=== PATIENT | male | born 1955 | race Two or more races ===

== ENCOUNTER 2017-04-03 10:39 | Emergency (ER) | payer MEDICARE, OTHER ==
[~2017-04-03] VITALS: Ht 190.5 cm; Wt 95.7 kg
[2017-04-03 12:58] LABS: Basophils # (auto) 0.1 uL; Eosinophils # (auto) 0.1 uL; Lymphocytes # (auto) 1.4 uL; Monocytes % (auto) 9.2 % (0.0-12.0)
[2017-04-03 13:00] LABS: Basophils % (auto) 0.8 % (0.0-2.0); Eosinophils % (auto) 0.4 % (0.0-7.0); Hematocrit 38.5 % (41.0-53.0); Hemoglobin 13.3 g/dL (13.5-17.5); Lymphocytes % (auto) 11.6 % (10.0-50.0); Mean Corpuscular Hemoglobin 37.3 pg (28.0-32.0); Mean Corpuscular Hgb Conc. 34.4 g/dL (32.0-36.0); Mean Corpuscular Volume 108.4 fL (80.0-100.0); Monocytes # (auto) 1.1 uL; Neutrophils # (auto) 9.7 uL; Nucleated Red Blood Cells % 0.1 %; Platelet Count (auto) 230 10^3/uL (140-450); Red Blood Cells 3.55 10^6/uL (4.5-5.90); Red Cell Distribution Width 14.9 % (11.8-14.3); White Blood Cell 12.4 10^3/uL (4.4-10.8)
[2017-04-03 13:32] LABS: Albumin 1.9 g/dL (3.4-5.0); BUN/Creatinine Ratio 25.3; Bilirubin, Total 6.7 mg/dL (0.2-1.0); Calcium 7.9 mg/dL (8.5-10.1); Potassium 4.7 mmol/L (3.5-5.1); Total Protein 8.7 g/dL (6.4-8.2)
[2017-04-03 13:36] LABS: INR 1.08 (0.9-1.15); Prothrombin Time 11.8 sec (9.37-12.3)
[2017-04-03 16:45] VITALS: BP 127/77
[2017-04-03] MEDS ORDERED: MORPHINE SULFATE 4 MG/ML SYR/VIAL IV PRN (16:45)
[2017-04-03] MEDS ORDERED: LORazepam 0.5 MG TAB PO PRN (16:45)
[2017-04-03] MEDS ORDERED: DEXTROSE (50%) 50ML SYRG IV PRN (16:45)
[2017-04-03] MEDS ORDERED: TEMAZEPAM 15 MG CAP PO PRN (16:45)
[2017-04-03] MEDS ORDERED: NITROGLYCERIN 0.4 MG SL TAB SL PRN (16:45)
[2017-04-03] MEDS ORDERED: MORPHINE SULF INJ 2 MG/ML SYRINGE 1ML IV PRN ×2 (16:45)
[2017-04-03] MEDS ORDERED: cefTRIAXone 1GM/10ml IVPUSH 10 ML IV ONE (16:45)
[2017-04-03] MEDS ORDERED: PANTOPRAZOLE 40 MG TAB PO ONE (17:00)
[2017-04-03 17:01] LABS: Amylase 180 U/L (25-115); Lipase 464 U/L (73-393)
[2017-04-03] MEDS ORDERED: ACCU-CHEK COMFORT CURVE STRIP VI SCH (18:00)
[2017-04-03] MEDS ORDERED: metroNIDAZOLE 500MG/100ML 100 ML IV SCH (18:00)
[2017-04-03] MEDS ORDERED: InsuLIN REG 1unit/0.01ml Soln (100units/ml) SC SCH (18:00)
[2017-04-04] MEDS ORDERED: cefTRIAXone 1GM/10ml IVPUSH 10 ML IV SCH (09:00)
[2017-04-04] MEDS ORDERED: PANTOPRAZOLE 40 MG TAB PO SCH (10:00)
== END 2017-04-03 17:38 | disposition left against medical advice (07) ==
LOC: ER 10:39
DX: K70.9 Alcoholic liver disease, unspecified (principal); K70.31 Alcoholic cirrhosis of liver with ascites; E11.9 Type 2 diabetes mellitus without complications; I10 Essential (primary) hypertension; E43 Unspecified severe protein-calorie malnutrition; Z68.26 Body mass index [BMI] 26.0-26.9, adult
CPT/HCPCS: 10030; 36415; 49082; 74176; 76705; 76942; 80053; 82150; 83036; 83690; 85025; 85610

== ENCOUNTER 2017-04-06 09:48 | Inpatient (IN) | payer MEDICARE, OTHER ==
[~2017-04-06] VITALS: Ht 152.4 cm; Wt 81.4 kg
[2017-04-06 10:47] LABS: Eosinophils # (auto) 0 uL; Eosinophils % (auto) 0.4 % (0.0-7.0); Lymphocytes # (auto) 1.1 uL; Lymphocytes % (auto) 9.8 % (10.0-50.0)
[2017-04-06 10:49] LABS: Basophils # (auto) 0 uL; Basophils % (auto) 0.4 % (0.0-2.0); Hematocrit 39.6 % (41.0-53.0); Hemoglobin 13.5 g/dL (13.5-17.5); Mean Corpuscular Hemoglobin 36.9 pg (28.0-32.0); Mean Corpuscular Volume 108.5 fL (80.0-100.0); Monocytes # (auto) 1.3 uL; Monocytes % (auto) 12.3 % (0.0-12.0); Neutrophils # (auto) 8.4 uL; Neutrophils % (auto) 77.1 % (37.0-80.0); Platelet Count (auto) 234 10^3/uL (140-450); Red Blood Cells 3.65 10^6/uL (4.5-5.90); Red Cell Distribution Width 14.7 % (11.8-14.3); White Blood Cell 10.9 10^3/uL (4.4-10.8)
[2017-04-06 11:02] LABS: INR 1.08 (0.9-1.15); Partial Thromboplastin Time 27.2 sec (22.64-33.71); Prothrombin Time 11.8 sec (9.37-12.3)
[2017-04-06 11:06] LABS: Albumin 1.6 g/dL (3.4-5.0); BUN/Creatinine Ratio 24.7; Bilirubin, Total 5.5 mg/dL (0.2-1.0); Calcium 7.3 mg/dL (8.5-10.1); Potassium 4.5 mmol/L (3.5-5.1); Total Protein 7.9 g/dL (6.4-8.2)
[2017-04-06] MEDS ORDERED: SODIUM CHLORIDE 0.9% 1,000 ML IV ONE (12:43)
[2017-04-06] MEDS ORDERED: SPIRONOLACTONE 25 MG TAB PO ONE (12:45)
[2017-04-06] MEDS ORDERED: LACTULOSE 20Gm/30ML SOLN PO ONE (12:45)
[2017-04-06] MEDS ORDERED: FUROSEMIDE 40 MG/4 ML VIAL IV ONE (12:45)
[2017-04-06] MEDS ORDERED: LIDOCAINE 2% JELLY 11ml (GLYDO) ONE (13:02)
[2017-04-06] MEDS ORDERED: LIDOCAINE 2% JELLY 11ml (GLYDO) UR ONE (13:45)
[2017-04-06 13:56] LABS: Urine Bacteria None Seen /hpf (None Seen); Urine WBC None Seen /hpf (0 - 3)
[2017-04-06 14:29] LABS: Urine Blood 2+ /uL (Negative)
[2017-04-06] MEDS ORDERED: MORPHINE SULF INJ 2 MG/ML SYRINGE 1ML IV PRN (15:45)
[2017-04-06] MEDS ORDERED: NITROGLYCERIN 0.4 MG SL TAB SL PRN (15:45)
[2017-04-06] MEDS ORDERED: ONDANSETRON HCL 4 MG/2 ML VIAL IV PRN (15:45)
[2017-04-06] MEDS ORDERED: METOCLOPRAMIDE HCL 5MG/ml INJ 2ml VIAL IV PRN (15:45)
[2017-04-06] MEDS ORDERED: MORPHINE SULFATE 10 MG/ML INJ 1ML SDV IV PRN (16:00)
[2017-04-06 18:40] VITALS: BP 154/77
[2017-04-06 22:01] VITALS: BP 148/73
[2017-04-06] MEDS: MORPHINE SULFATE 10 MG/ML INJ 1ML SDV IV PRN (22:27)
[2017-04-07 04:42] VITALS: BP 148/73
[2017-04-07] MEDS: MORPHINE SULFATE 10 MG/ML INJ 1ML SDV IV PRN (06:20)
[2017-04-07 07:32] VITALS: BP 129/62
[2017-04-07 10:17] LABS: Eosinophils # (auto) 0.1 uL; Hematocrit 37.5 % (41.0-53.0); Monocytes # (auto) 1.5 uL; Nucleated Red Blood Cells % 0.1 %; Red Cell Distribution Width 14.4 % (11.8-14.3)
[2017-04-07 10:19] LABS: Basophils # (auto) 0.2 uL; Basophils % (auto) 1.7 % (0.0-2.0); Eosinophils % (auto) 0.7 % (0.0-7.0); Hemoglobin 12.7 g/dL (13.5-17.5); Lymphocytes # (auto) 1.4 uL; Lymphocytes % (auto) 12.5 % (10.0-50.0); Mean Corpuscular Hemoglobin 36.7 pg (28.0-32.0); Mean Corpuscular Hgb Conc. 33.9 g/dL (32.0-36.0); Mean Corpuscular Volume 108.2 fL (80.0-100.0); Monocytes % (auto) 12.9 % (0.0-12.0); Neutrophils # (auto) 8.2 uL; Neutrophils % (auto) 72.2 % (37.0-80.0); Platelet Count (auto) 121 10^3/uL (140-450); Red Blood Cells 3.47 10^6/uL (4.5-5.90); White Blood Cell 11.4 10^3/uL (4.4-10.8)
[2017-04-07 10:41] LABS: Albumin 1.5 g/dL (3.4-5.0); Bilirubin, Direct 5.6 mg/dL (0-0.2); Bilirubin, Total 8.1 mg/dL (0.2-1.0); Total Protein 7.3 g/dL (6.4-8.2)
[2017-04-07 10:42] LABS: Albumin 1.5 g/dL (3.4-5.0); BUN/Creatinine Ratio 26.3; Bilirubin, Total 8.1 mg/dL (0.2-1.0); Calcium 7.1 mg/dL (8.5-10.1); Potassium 4.4 mmol/L (3.5-5.1); Total Protein 7.2 g/dL (6.4-8.2)
[2017-04-07 11:55] VITALS: BP 147/80
[2017-04-07] MEDS ORDERED: SPIRONOLACTONE 25 MG TAB PO SCH (14:30)
[2017-04-07] MEDS ORDERED: FUROSEMIDE 20 MG TAB PO SCH (14:30)
[2017-04-07 16:36] VITALS: BP 128/64
[2017-04-07 23:10] VITALS: BP 149/82
[2017-04-07 23:14] VITALS: BP 149/86
[2017-04-08] MEDS ORDERED: DEXTROSE (50%) 50ML SYRG IV PRN (00:30)
[2017-04-08 05:47] VITALS: BP 120/60
[2017-04-08] MEDS ORDERED: ACCU-CHEK COMFORT CURVE STRIP VI SCH (07:00)
[2017-04-08] MEDS ORDERED: InsuLIN REG 1unit/0.01ml Soln (100units/ml) SC SCH (07:00)
[2017-04-08 07:37] VITALS: BP 146/71
== END 2017-04-08 07:30 | disposition left against medical advice (07) | DRG 432 ==
LOC: ER 09:48 → TELE 09:49 → TELE-CENTR 18:28
PROVIDERS: ADMIT Internal Medicine; ATTEND Internal Medicine
PROC: 0W9G3ZZ Drainage of Peritoneal Cavity, Percutaneous Approach (ICD-10-PCS; principal; 2017-04-07)
DX: K70.31 Alcoholic cirrhosis of liver with ascites (principal); E43 Unspecified severe protein-calorie malnutrition; K80.51 Calculus of bile duct without cholangitis or cholecystitis with obstruction; E87.1 Hypo-osmolality and hyponatremia; E11.65 Type 2 diabetes mellitus with hyperglycemia; F10.10 Alcohol abuse, uncomplicated; I10 Essential (primary) hypertension; I25.10 Atherosclerotic heart disease of native coronary artery without angina pectoris; Z68.33 Body mass index [BMI] 33.0-33.9, adult
CPT/HCPCS: 10030; 36415; 49082; 49083; 71046; 74176; 76705; 76942; 80053; 80076; 80320; 81001; 82140; 82150; 82962; 83036; 83690; 83735; 85025; 85610; 85730; 87081; 93005; 94761; 96361; 96374; J1815

== ENCOUNTER 2017-04-08 16:49 | Inpatient (IN) | payer MEDICARE, OTHER ==
[~2017-04-08] VITALS: Ht 157.5 cm; Wt 88.4 kg
[2017-04-09 01:50] LABS: Basophils # (auto) 0.1 uL; Eosinophils # (auto) 0.1 uL; Hematocrit 37.9 % (41.0-53.0); Hemoglobin 13.1 g/dL (13.5-17.5); Lymphocytes # (auto) 1.5 uL; Mean Corpuscular Hemoglobin 37.3 pg (28.0-32.0); Mean Corpuscular Hgb Conc. 34.7 g/dL (32.0-36.0); Nucleated Red Blood Cells % 0.1 %; Red Blood Cells 3.52 10^6/uL (4.5-5.90)
[2017-04-09 01:51] LABS: Basophils % (auto) 1.1 % (0.0-2.0); Eosinophils % (auto) 0.8 % (0.0-7.0); Lymphocytes % (auto) 12.5 % (10.0-50.0); Mean Corpuscular Volume 107.5 fL (80.0-100.0); Monocytes # (auto) 1.5 uL; Monocytes % (auto) 12.5 % (0.0-12.0); Neutrophils # (auto) 8.7 uL; Neutrophils % (auto) 73.1 % (37.0-80.0); Platelet Count (auto) 187 10^3/uL (140-450); Red Cell Distribution Width 14.1 % (11.8-14.3); White Blood Cell 11.9 10^3/uL (4.4-10.8)
[2017-04-09 02:12] LABS: Albumin 1.7 g/dL (3.4-5.0); BUN/Creatinine Ratio 29.5; Bilirubin, Total 7.9 mg/dL (0.2-1.0); Calcium 7.7 mg/dL (8.5-10.1); Potassium 4.2 mmol/L (3.5-5.1); Total Protein 7.8 g/dL (6.4-8.2)
[2017-04-09 04:12] LABS: Amylase 135 U/L (25-115); Lipase 667 U/L (73-393)
[2017-04-09 05:48] LABS: Urine Bacteria FEW /hpf (None Seen); Urine Blood TRACE /uL (Negative); Urine Hyaline Cast FEW /lpf (0 - 2); Urine Mucus FEW (None Seen); Urine Specific Gravity 1.027 (1.001-1.035); Urine WBC 1 /hpf (0 - 3)
[2017-04-09] MEDS ORDERED: SODIUM CHLORIDE 0.9% 1,000 ML IV SCH (06:39)
[2017-04-09] MEDS ORDERED: cloNIDine HCL 0.1 MG TAB PO PRN (06:45)
[2017-04-09] MEDS ORDERED: NITROGLYCERIN 0.4 MG SL TAB SL PRN (06:45)
[2017-04-09] MEDS ORDERED: MORPHINE SULFATE 10 MG/ML INJ 1ML SDV IV PRN ×2 (06:45)
[2017-04-09] MEDS ORDERED: TEMAZEPAM 15 MG CAP PO PRN (06:45)
[2017-04-09] MEDS ORDERED: ACETAMINOPHEN 325 MG TAB PO PRN (06:45)
[2017-04-09] MEDS ORDERED: DEXTROSE (50%) 50ML SYRG IV PRN (06:45)
[2017-04-09] MEDS ORDERED: HYDROcodone-ACET 5/325MG TAB PO PRN (06:45)
[2017-04-09] MEDS ORDERED: ONDANSETRON HCL 4 MG/2 ML VIAL IV PRN (06:45)
[2017-04-09] MEDS ORDERED: chlordiazePOXIDE HCL 5 MG CAP PO PRN (07:00)
[2017-04-09 07:49] LABS: INR 1.23 (0.9-1.15); Prothrombin Time 13.4 sec (9.37-12.3)
[2017-04-09] MEDS ORDERED: cefTRIAXone 1GM/10ml IVPUSH 10 ML IV SCH (09:00)
[2017-04-09] MEDS: FAMOTIDINE 20 MG TAB PO SCH ×2 (10:28→20:22)
[2017-04-09] MEDS: METOPROLOL TARTRATE 25 MG TAB PO SCH ×2 (10:29→20:24)
[2017-04-09] MEDS: THIAMINE HCL 100 MG TAB PO SCH (10:29)
[2017-04-09] MEDS: FOLIC ACID 1 MG TAB PO SCH (10:29)
[2017-04-09] MEDS: ACCU-CHEK COMFORT CURVE STRIP VI SCH ×3 (11:29→23:02)
[2017-04-09] MEDS: InsuLIN REG 1unit/0.01ml Soln (100units/ml) SC SCH ×3 (11:31→23:02)
[2017-04-09] MEDS ORDERED: LORazepam 2MG/ML-1ML VIAL IV PRN (13:15)
[2017-04-09] MEDS ORDERED: FUROSEMIDE 20 MG TAB PO ONE (13:15)
[2017-04-09 17:27] VITALS: BP 139/81
[2017-04-09] MEDS: SPIRONOLACTONE 25 MG TAB PO SCH (17:42)
[2017-04-09 22:04] VITALS: BP 125/55
[2017-04-10 04:47] VITALS: BP 131/69
[2017-04-10] MEDS: SPIRONOLACTONE 25 MG TAB PO SCH (05:26)
[2017-04-10] MEDS: InsuLIN REG 1unit/0.01ml Soln (100units/ml) SC SCH (05:27)
[2017-04-10] MEDS: ACCU-CHEK COMFORT CURVE STRIP VI SCH (05:27)
[2017-04-10 07:33] LABS: Basophils # (auto) 0.1 uL; Eosinophils # (auto) 0.1 uL; Lymphocytes # (auto) 0.9 uL; Monocytes # (auto) 1.2 uL; Nucleated Red Blood Cells % 0.1 %
[2017-04-10 07:37] LABS: Basophils % (auto) 0.7 % (0.0-2.0); Eosinophils % (auto) 0.8 % (0.0-7.0); Hematocrit 35.2 % (41.0-53.0); Hemoglobin 12.2 g/dL (13.5-17.5); Mean Corpuscular Hemoglobin 37.2 pg (28.0-32.0); Mean Corpuscular Hgb Conc. 34.8 g/dL (32.0-36.0); Mean Corpuscular Volume 106.7 fL (80.0-100.0); Monocytes % (auto) 13.5 % (0.0-12.0); Neutrophils # (auto) 6.6 uL; Platelet Count (auto) 142 10^3/uL (140-450); Red Blood Cells 3.29 10^6/uL (4.5-5.90); Red Cell Distribution Width 14.4 % (11.8-14.3); White Blood Cell 8.8 10^3/uL (4.4-10.8)
[2017-04-10 07:55] LABS: Albumin 1.3 g/dL (3.4-5.0); BUN/Creatinine Ratio 29.3; Bilirubin, Total 5.9 mg/dL (0.2-1.0); Calcium 7.2 mg/dL (8.5-10.1); Potassium 3.8 mmol/L (3.5-5.1); Total Protein 6.2 g/dL (6.4-8.2)
[2017-04-10 08:00] VITALS: BP 126/56
[2017-04-10 08:23] VITALS: BP 126/56
[2017-04-10] MEDS: FUROSEMIDE 20 MG TAB PO SCH ×2 (10:49→10:54)
[2017-04-10] MEDS: FOLIC ACID 1 MG TAB PO SCH (10:50)
[2017-04-10] MEDS: METOPROLOL TARTRATE 25 MG TAB PO SCH (10:50)
[2017-04-10] MEDS: THIAMINE HCL 100 MG TAB PO SCH (10:51)
[2017-04-10] MEDS: FAMOTIDINE 20 MG TAB PO SCH (10:51)
[2017-04-10] MEDS ORDERED: SPIR25TA88 PO (12:41)
[2017-04-10 12:45] VITALS: BP 105/63
== END 2017-04-10 14:35 | disposition home or self-care (01) | DRG 432 ==
LOC: ER 16:57 → TELE 16:58 → TELE-CENTR 04-09 16:41
PROVIDERS: ADMIT Nurse Practitioner; ATTEND Internal Medicine
DX: K70.31 Alcoholic cirrhosis of liver with ascites (principal); E43 Unspecified severe protein-calorie malnutrition; K76.6 Portal hypertension; D68.4 Acquired coagulation factor deficiency; R65.10 Systemic inflammatory response syndrome (SIRS) of non-infectious origin without acute organ dysfunction; E10.65 Type 1 diabetes mellitus with hyperglycemia; E87.1 Hypo-osmolality and hyponatremia; F10.239 Alcohol dependence with withdrawal, unspecified; K86.1 Other chronic pancreatitis; K80.20 Calculus of gallbladder without cholecystitis without obstruction; I10 Essential (primary) hypertension; D53.9 Nutritional anemia, unspecified; Z68.35 Body mass index [BMI] 35.0-35.9, adult; Z83.3 Family history of diabetes mellitus
CPT/HCPCS: 36415; 74181; 76700; 80053; 80320; 81001; 82140; 82150; 82962; 83690; 85025; 85610; 85730; 87040; 87081; 96361; 96374; J1815

== ENCOUNTER 2017-04-28 08:51 | Inpatient (IN) | payer MEDICARE, OTHER ==
[~2017-04-28] VITALS: Ht 167.6 cm; Wt 91.2 kg
[~2017-04-28 08:51] MED LIST: SPIR25TA88 PO
[2017-04-28 11:03] LABS: Basophils # (auto) 0.1 uL; Eosinophils # (auto) 0 uL; Hemoglobin 12.3 g/dL (13.5-17.5); Lymphocytes # (auto) 1.6 uL; Monocytes # (auto) 1.8 uL; Red Cell Distribution Width 14.3 % (11.8-14.3)
[2017-04-28 11:05] LABS: Basophils % (auto) 0.7 % (0.0-2.0); Eosinophils % (auto) 0.4 % (0.0-7.0); Hematocrit 36.8 % (41.0-53.0); Lymphocytes % (auto) 11.8 % (10.0-50.0); Mean Corpuscular Hemoglobin 35.8 pg (28.0-32.0); Mean Corpuscular Hgb Conc. 33.4 g/dL (32.0-36.0); Mean Corpuscular Volume 107.1 fL (80.0-100.0); Monocytes % (auto) 13.2 % (0.0-12.0); Neutrophils % (auto) 73.9 % (37.0-80.0); Platelet Count (auto) 285 10^3/uL (140-450); Red Blood Cells 3.43 10^6/uL (4.5-5.90); White Blood Cell 13.6 10^3/uL (4.4-10.8)
[2017-04-28 11:16] LABS: INR 1.1 (0.9-1.15); Partial Thromboplastin Time 27.5 sec (22.64-33.71)
[2017-04-28 11:36] LABS: Lactic Acid w/Reflex 5.3 mmol/L (0.4-2.0)
[2017-04-28] MEDS ORDERED: VANCOMYCIN 1GM/250ML 250 ML IV ONE (12:15)
[2017-04-28] MEDS ORDERED: PIPERACILLIN-TAZOB 3.375GM 50 ML IV ONE (12:15)
[2017-04-28] MEDS ORDERED: MORPHINE SULFATE 4 MG/ML SYR/VIAL IV PRN (13:00)
[2017-04-28] MEDS ORDERED: HYDROcodone-ACET 5/325MG TAB PO PRN (13:00)
[2017-04-28] MEDS ORDERED: THIAMINE HCL 100 MG/ML 2ML VIAL IV ONE (13:00)
[2017-04-28] MEDS ORDERED: MULTIPLE VITAMIN TAB PO ONE (13:00)
[2017-04-28] MEDS ORDERED: FOLIC ACID 1 MG TAB PO ONE (13:00)
[2017-04-28] MEDS ORDERED: ONDANSETRON HCL 4 MG/2 ML VIAL IV PRN (13:00)
[2017-04-28] MEDS ORDERED: LIDOCAINE 2%HCL (LOCAL ANESTH.) INJ 20ML MDV ONE (13:27)
[2017-04-28] MEDS ORDERED: DEXTROSE (50%) 50ML SYRG IV PRN (13:30)
[2017-04-28] MEDS ORDERED: LORazepam 2MG/ML-1ML VIAL IV PRN (13:30)
[2017-04-28 13:44] LABS: Albumin 2.7 g/dL (3.4-5.0); Anion Gap 10 (5-15); Calcium 8.8 mg/dL (8.5-10.1); Carbon Dioxide 17 mmol/L (21-32); Chloride 100 mmol/L (98-107); Glucose 256 mg/dL (74-106); Potassium 4.9 mmol/L (3.5-5.1); Sodium 127 mmol/L (136-145)
[2017-04-28 13:48] LABS: Alanine Aminotransferase 38 U/L (16-61); Alkaline Phosphatase 477 U/L (45-117); Aspartate Aminotransferase 94 U/L (15-37); Bilirubin, Total 4.2 mg/dL (0.2-1.0); Blood Urea Nitrogen 18 mg/dL (7-18); GFR African American 136 mL/min; GFR Non-African American 113 mL/min; Total Protein 8.4 g/dL (6.4-8.2)
[2017-04-28] MEDS: cefTRIAXone 1GM/10ml IVPUSH 10 ML IV SCH (15:19)
[2017-04-28] MEDS: ALBUMIN 25% 100 ML IV SCH ×2 (15:30→16:00)
[2017-04-28] MEDS: InsuLIN REG 1unit/0.01ml Soln (100units/ml) SC SCH ×2 (17:00→22:31)
[2017-04-28] MEDS: ACCU-CHEK COMFORT CURVE STRIP VI SCH ×2 (17:00→21:49)
[2017-04-28 17:40] VITALS: BP 151/73
[2017-04-28] MEDS: SPIRONOLACTONE 25 MG TAB PO SCH (18:02)
[2017-04-28 22:00] VITALS: BP 132/75
[2017-04-28] MEDS: PROPRANOLOL HCL 20 MG TAB PO SCH (22:31)
[2017-04-28 23:59] LABS: Urine Bacteria NONE SEEN /hpf (None Seen); Urine Blood 1+ /uL (Negative); Urine Specific Gravity 1.021 (1.001-1.035); Urine WBC <1 /hpf (0 - 3)
[2017-04-29 00:05] LABS: Alcohol, Urine < 3.0 mg/dL (0-5); Amphetamine Screen, Urine NEGATIVE (NEGATIVE); Barbiturate Scree,Urine NEGATIVE (NEGATIVE); Benzodiazephine Screen, Urine NEGATIVE (NEGATIVE); Cannabinoid Screen, Urine NEGATIVE (NEGATIVE); Cocaine Screen, Urine NEGATIVE (NEGATIVE); Opiate Scree,Urine NEGATIVE (NEGATIVE); Phencyclidine Screen, Urine NEGATIVE (NEGATIVE)
[2017-04-29] MEDS: cefTRIAXone 1GM/10ml IVPUSH 10 ML IV SCH ×2 (01:18→14:28)
[2017-04-29 05:38] VITALS: BP 123/58
[2017-04-29 05:48] LABS: Basophils # (auto) 0.1 uL; Eosinophils # (auto) 0.1 uL; Lymphocytes # (auto) 1.4 uL
[2017-04-29 05:50] LABS: Basophils % (auto) 0.8 % (0.0-2.0); Eosinophils % (auto) 0.7 % (0.0-7.0); Hematocrit 33.4 % (41.0-53.0); Hemoglobin 11.6 g/dL (13.5-17.5); Lymphocytes % (auto) 12.5 % (10.0-50.0); Mean Corpuscular Hemoglobin 36.7 pg (28.0-32.0); Mean Corpuscular Hgb Conc. 34.6 g/dL (32.0-36.0); Mean Corpuscular Volume 106.2 fL (80.0-100.0); Monocytes # (auto) 1.6 uL; Monocytes % (auto) 14.3 % (0.0-12.0); Neutrophils # (auto) 7.8 uL; Neutrophils % (auto) 71.7 % (37.0-80.0); Nucleated Red Blood Cells % 0.1 %; Platelet Count (auto) 189 10^3/uL (140-450); Red Blood Cells 3.14 10^6/uL (4.5-5.90); Red Cell Distribution Width 13.9 % (11.8-14.3); White Blood Cell 10.9 10^3/uL (4.4-10.8)
[2017-04-29 06:07] LABS: BUN/Creatinine Ratio 21.3; Calcium 7.6 mg/dL (8.5-10.1); Potassium 4.7 mmol/L (3.5-5.1)
[2017-04-29] MEDS: ACCU-CHEK COMFORT CURVE STRIP VI SCH ×2 (06:14→12:07)
[2017-04-29] MEDS: InsuLIN REG 1unit/0.01ml Soln (100units/ml) SC SCH ×2 (06:26→12:08)
[2017-04-29] MEDS: SPIRONOLACTONE 25 MG TAB PO SCH (06:26)
[2017-04-29 09:00] VITALS: BP 116/60
[2017-04-29] MEDS ORDERED: MULTIPLE VITAMIN TAB PO SCH (10:00)
[2017-04-29] MEDS ORDERED: THIAMINE HCL 100 MG/ML 2ML VIAL IV SCH (10:00)
[2017-04-29] MEDS ORDERED: FOLIC ACID 1 MG TAB PO SCH (10:00)
[2017-04-29] MEDS ORDERED: FUROSEMIDE 40 MG TAB PO SCH (10:00)
[2017-04-29] MEDS: PROPRANOLOL HCL 20 MG TAB PO SCH (11:18)
[2017-04-29] MEDS ORDERED: FUROSEMIDE 40 MG/4 ML VIAL IV ONE (11:45)
[2017-04-29] MEDS ORDERED: glipiZIDE 5 MG TAB PO ONE (11:45)
[2017-04-29 13:00] VITALS: BP 126/73
[2017-04-30] MEDS ORDERED: glipiZIDE 5 MG TAB PO SCH (07:00)
[2017-04-30] MEDS ORDERED: FUROSEMIDE 40 MG/4 ML VIAL IV SCH (10:00)
== END 2017-04-29 15:55 | disposition left against medical advice (07) | DRG 432 ==
LOC: ER 08:51 → OVERFLOW 08:52 → WEST WING 16:38
PROVIDERS: ADMIT Internal Medicine; ATTEND Internal Medicine
PROC: 0W9G30Z Drainage of Peritoneal Cavity with Drainage Device, Percutaneous Approach (ICD-10-PCS; principal; 2017-04-28)
DX: K70.31 Alcoholic cirrhosis of liver with ascites (principal); K65.2 Spontaneous bacterial peritonitis; E44.0 Moderate protein-calorie malnutrition; E87.2 Acidosis; R65.10 Systemic inflammatory response syndrome (SIRS) of non-infectious origin without acute organ dysfunction; E87.1 Hypo-osmolality and hyponatremia; E87.70 Fluid overload, unspecified; F10.10 Alcohol abuse, uncomplicated; E11.9 Type 2 diabetes mellitus without complications; E66.9 Obesity, unspecified; Z53.21 Procedure and treatment not carried out due to patient leaving prior to being seen by health care provider; I10 Essential (primary) hypertension; Z82.49 Family history of ischemic heart disease and other diseases of the circulatory system; Z83.3 Family history of diabetes mellitus; Z68.32 Body mass index [BMI] 32.0-32.9, adult; B96.89 Other specified bacterial agents as the cause of diseases classified elsewhere
CPT/HCPCS: 10022; 36415; 76705; 76942; 80048; 80053; 80307; 81001; 82140; 82962; 83605; 83690; 84484; 85025; 85610; 85730; 87040; 87081; 96374; 96375; J1815; J2543

== ENCOUNTER 2017-05-03 00:59 | Inpatient (IN) | payer MEDICARE, OTHER ==
[~2017-05-03] VITALS: Ht 165.1 cm; Wt 88.1 kg
[2017-05-03] MEDS ORDERED: ADENOSINE 6 MG/2 ML INJ IV ONE ×4 (01:19→01:30)
[2017-05-03] MEDS ORDERED: MORPHINE SULFATE 4 MG/ML SYR/VIAL IV ONE (01:30)
[2017-05-03] MEDS ORDERED: ONDANSETRON HCL 4 MG/2 ML VIAL IV ONE (01:30)
[2017-05-03] MEDS ORDERED: ONDANSETRON HCL 4 MG/2 ML VIAL ONE (01:30)
[2017-05-03] MEDS ORDERED: MORPHINE SULFATE 4 MG/ML SYR/VIAL ONE (01:30)
[2017-05-03 03:42] LABS: Lymphocytes % (auto) 7.9 % (10.0-50.0); Neutrophils % (auto) 78.6 % (37.0-80.0)
[2017-05-03 03:43] LABS: Basophils # (auto) 0 uL; Basophils % (auto) 0.4 % (0.0-2.0); Eosinophils # (auto) 0 uL; Eosinophils % (auto) 0.1 % (0.0-7.0); Hematocrit 39.6 % (41.0-53.0); Hemoglobin 12.6 g/dL (13.5-17.5); Lymphocytes # (auto) 0.9 uL; Mean Corpuscular Hemoglobin 35.6 pg (28.0-32.0); Mean Corpuscular Hgb Conc. 31.8 g/dL (32.0-36.0); Monocytes # (auto) 1.6 uL; Neutrophils # (auto) 9.4 uL; Nucleated Red Blood Cells % 0.2 %; Platelet Count (auto) 201 10^3/uL (140-450); Red Blood Cells 3.54 10^6/uL (4.5-5.90); Red Cell Distribution Width 15.4 % (11.8-14.3)
[2017-05-03 03:51] LABS: Albumin 2.3 g/dL (3.4-5.0); BUN/Creatinine Ratio 25.6; Potassium 5.2 mmol/L (3.5-5.1)
[2017-05-03 04:00] LABS: Bilirubin, Total 4.1 mg/dL (0.2-1.0); Total Protein 7.7 g/dL (6.4-8.2)
[2017-05-03] MEDS ORDERED: MORPHINE SULFATE 4 MG/ML SYR/VIAL IV PRN (07:30)
[2017-05-03] MEDS ORDERED: NITROGLYCERIN 0.4 MG SL TAB SL PRN (07:30)
[2017-05-03] MEDS ORDERED: ONDANSETRON HCL 4 MG/2 ML VIAL IV PRN (07:30)
[2017-05-03 07:35] LABS: Urine Bacteria NONE SEEN /hpf (None Seen); Urine Blood TRACE /uL (Negative); Urine Mucus FEW (None Seen); Urine Specific Gravity 1.023 (1.001-1.035); Urine WBC 3 /hpf (0 - 3)
[2017-05-03] MEDS ORDERED: LORazepam 2MG/ML-1ML VIAL IV PRN (07:45)
[2017-05-03 07:51] LABS: Cholesterol 153 mg/dL (< 200); HDL Cholesterol 19 mg/dL (40-59); LDL Cholesterol 118 mg/dL (< 100); Triglycerides 116 mg/dL (< 150)
[2017-05-03 09:56] VITALS: BP 115/62
[2017-05-03 10:11] VITALS: BP 119/57
[2017-05-03] MEDS: ASPirin-EC 81 mg tab PO SCH (11:36)
[2017-05-03] MEDS: ENOXAPARIN SOD 100 MG/1 ML SYRINGE SC SCH ×2 (11:36→21:54)
[2017-05-03] MEDS: chlordiazePOXIDE HCL 25 MG CAP PO PRN ×2 (11:37→16:02)
[2017-05-03] MEDS: FOLIC ACID 1 MG TAB PO SCH (11:37)
[2017-05-03] MEDS: MULTIPLE VITAMIN TAB PO SCH (11:37)
[2017-05-03] MEDS: METOPROLOL TARTRATE 50 MG TAB PO SCH ×2 (11:38→21:54)
[2017-05-03] MEDS: THIAMINE HCL 100 MG TAB PO SCH (11:39)
[2017-05-03 12:00] VITALS: BP 114/62
[2017-05-03 17:00] VITALS: BP 113/53
[2017-05-03] MEDS ORDERED: SPIRONOLACTONE 25 MG TAB PO SCH ×2 (18:00)
[2017-05-03] MEDS: ATORVASTATIN 20 MG TAB PO SCH (21:54)
[2017-05-03 22:00] VITALS: BP 109/56
[2017-05-04 05:00] VITALS: BP 94/55
[2017-05-04 07:23] LABS: Basophils # (auto) 0.1 uL; Basophils % (auto) 0.9 % (0.0-2.0); Eosinophils # (auto) 0.1 uL; Eosinophils % (auto) 1.2 % (0.0-7.0); Hematocrit 35.6 % (41.0-53.0); Hemoglobin 12.1 g/dL (13.5-17.5); Lymphocytes # (auto) 1.5 uL; Lymphocytes % (auto) 15.2 % (10.0-50.0); Mean Corpuscular Hemoglobin 36.5 pg (28.0-32.0); Mean Corpuscular Hgb Conc. 34.1 g/dL (32.0-36.0); Mean Corpuscular Volume 107.2 fL (80.0-100.0); Monocytes # (auto) 1.5 uL; Monocytes % (auto) 15.5 % (0.0-12.0); Neutrophils # (auto) 6.5 uL; Neutrophils % (auto) 67.2 % (37.0-80.0); Nucleated Red Blood Cells % 0.1 %; Platelet Count (auto) 155 10^3/uL (140-450); Red Blood Cells 3.32 10^6/uL (4.5-5.90); Red Cell Distribution Width 14.4 % (11.8-14.3); White Blood Cell 9.7 10^3/uL (4.4-10.8)
[2017-05-04 07:39] LABS: INR 1.22 (0.9-1.15); Prothrombin Time 13.3 sec (9.37-12.3)
[2017-05-04 08:00] VITALS: BP 95/51
[2017-05-04 08:08] LABS: Albumin 1.7 g/dL (3.4-5.0); BUN/Creatinine Ratio 32.6; Calcium 7.4 mg/dL (8.5-10.1); Magnesium 2.1 mg/dL (1.6-2.6); Total Protein 6.1 g/dL (6.4-8.2)
[2017-05-04 08:15] LABS: Potassium 5.8 mmol/L (3.5-5.1)
[2017-05-04 08:51] VITALS: BP 100/54
[2017-05-04] MEDS ORDERED: SODIUM POLYSTYRENE SULF 15GM/60ML SUSP PO ONE (09:30)
[2017-05-04] MEDS: MULTIPLE VITAMIN TAB PO SCH (10:58)
[2017-05-04] MEDS: ASPirin-EC 81 mg tab PO SCH (10:59)
[2017-05-04] MEDS: METOPROLOL TARTRATE 50 MG TAB PO SCH ×2 (10:59→21:56)
[2017-05-04] MEDS: FOLIC ACID 1 MG TAB PO SCH (11:00)
[2017-05-04] MEDS: THIAMINE HCL 100 MG TAB PO SCH (11:02)
[2017-05-04] MEDS: ENOXAPARIN SOD 100 MG/1 ML SYRINGE SC SCH ×2 (11:03→21:56)
[2017-05-04 15:11] VITALS: BP 102/60
[2017-05-04 17:42] VITALS: BP 122/51
[2017-05-04] MEDS: chlordiazePOXIDE HCL 25 MG CAP PO PRN (20:39)
[2017-05-04] MEDS: ATORVASTATIN 20 MG TAB PO SCH (21:55)
[2017-05-04 22:00] VITALS: BP 111/53
[2017-05-05 05:00] VITALS: BP 132/71
[2017-05-05 08:00] VITALS: BP 96/47
[2017-05-05 09:00] VITALS: BP 96/47
[2017-05-05 09:04] LABS: Albumin 1.8 g/dL (3.4-5.0); BUN/Creatinine Ratio 30.6; Calcium 7.6 mg/dL (8.5-10.1); Potassium 4.5 mmol/L (3.5-5.1); Total Protein 6.8 g/dL (6.4-8.2)
[2017-05-05] MEDS: ENOXAPARIN SOD 100 MG/1 ML SYRINGE SC SCH (10:00)
[2017-05-05] MEDS: FOLIC ACID 1 MG TAB PO SCH (10:00)
[2017-05-05] MEDS: ASPirin-EC 81 mg tab PO SCH (10:00)
[2017-05-05] MEDS: METOPROLOL TARTRATE 50 MG TAB PO SCH (10:00)
[2017-05-05] MEDS: THIAMINE HCL 100 MG TAB PO SCH (10:00)
[2017-05-05] MEDS: MULTIPLE VITAMIN TAB PO SCH (10:00)
[2017-05-05] MEDS ORDERED: ADENOSINE 74 MG in GIVE UN-DILUTED 0 ML IV STA (10:37)
[2017-05-05 11:29] VITALS: BP 107/58
[2017-05-05 13:00] VITALS: BP 144/81
== END 2017-05-05 17:10 | disposition left against medical advice (07) | DRG 432 ==
LOC: ER 01:02 → TELE 01:03 → TELE-EAST 09:39
PROVIDERS: ADMIT Nurse Practitioner Family; ATTEND Internal Medicine
PROC: 5A2204Z Restoration of Cardiac Rhythm, Single (ICD-10-PCS; principal; 2017-05-03)
PROC: 0W9G3ZZ Drainage of Peritoneal Cavity, Percutaneous Approach (ICD-10-PCS; 2017-05-03)
DX: K70.31 Alcoholic cirrhosis of liver with ascites (principal); I21.4 Non-ST elevation (NSTEMI) myocardial infarction; E43 Unspecified severe protein-calorie malnutrition; E11.65 Type 2 diabetes mellitus with hyperglycemia; E87.1 Hypo-osmolality and hyponatremia; K76.6 Portal hypertension; E87.5 Hyperkalemia; I47.1 Supraventricular tachycardia; I11.9 Hypertensive heart disease without heart failure; D53.9 Nutritional anemia, unspecified; Z53.21 Procedure and treatment not carried out due to patient leaving prior to being seen by health care provider; D72.829 Elevated white blood cell count, unspecified; F41.9 Anxiety disorder, unspecified; E78.5 Hyperlipidemia, unspecified; F10.10 Alcohol abuse, uncomplicated; Z79.4 Long term (current) use of insulin; Z82.49 Family history of ischemic heart disease and other diseases of the circulatory system; Z83.3 Family history of diabetes mellitus; Z91.19 Patient's noncompliance with other medical treatment and regimen; Z79.899 Other long term (current) drug therapy; Z68.32 Body mass index [BMI] 32.0-32.9, adult
CPT/HCPCS: 36415; 49082; 49083; 71045; 80053; 80061; 80320; 81001; 83036; 83735; 83880; 84132; 84484; 85025; 85610; 87081; 87205; 89051; 92960; 93005; 93017; 93306; 96374; 96375; 96376; 99291; J0153; J2405